=== PATIENT | female | born 1990 | race Caucasian/White ===

== ENCOUNTER 2021-02-03 04:37 | Emergency (ER) | payer OTHER ==
[2021-02-03 05:44] LABS: HEMOGLOBIN 11.8 gm/dl (12.3-15.3); RED BLOOD COUNT 4.13 M/UL (4.00-5.10); WHITE BLOOD COUNT 13.7 K/UL (4.5-11.0)
[2021-02-03 06:03] LABS: BUN/CREATININE RATIO 13 (0-10)
== END 2021-02-03 08:50 | disposition home or self-care (01) ==
LOC: ER1 04:37
PROVIDERS: Physician Assistant
DX: I47.1 Supraventricular tachycardia (principal); R10.30 Lower abdominal pain, unspecified; F17.200 Nicotine dependence, unspecified, uncomplicated; Z20.822 Contact with and (suspected) exposure to COVID-19
CPT/HCPCS: 80053; 81001; 82550; 82553; 83690; 83735; 83874; 84439; 84443; 84484; 84703; 85025; 87077; 87086; 87186; 93005; 93242; 99284; J0153; J1885; J2405; U0002

== ENCOUNTER → 2021-03-28 | Outpatient (CLI) | payer OTHER | LOC: HEART 5 09:52 | DX: I47.1 Supraventricular tachycardia (principal); I34.0 Nonrheumatic mitral (valve) insufficiency | CPT/HCPCS: 71046; 93306 ==

== ENCOUNTER 2021-11-09 12:27 | Outpatient (CLI) | payer OTHER ==
[~2021-11-09 12:27] MED LIST: BUSPAR 10MG10 MG PO; METOPROLOL SUCC25 MG PO; METOPROLOL TART25 MG PO; MINIPRES CAP 2 M2 MG PO; PRAZOSIN HCL2 MG PO
== END 2021-11-09 14:16 | disposition home or self-care (01) ==
LOC: GENOP 12:27
DX: O36.8130 Decreased fetal movements, third trimester, not applicable or unspecified (principal); O99.891 Other specified diseases and conditions complicating pregnancy; M54.9 Dorsalgia, unspecified; Z3A.33 33 weeks gestation of pregnancy
CPT/HCPCS: 59025; 81001

== ENCOUNTER → 2021-12-03 | Outpatient (CLI) | payer BC, OTHER ==
[~2021-12-03] MED LIST changes: +COLACE 100MG C100 MG PO; +CYCLOBENZAPRINE5 MG PO; +FAMOTIDINE40 MG PO; +FLINTSTONES1 EAC1 PO; +HEMOCYTE324 MG PO; +HYDROCODON-ACE1 EAC2 PO; +IBUPROFEN800 MG PO; +PROMETHAZINE12.5 M1 PO
[2021-12-03 11:13] LABS: HEMOGLOBIN 8.3 gm/dl (12.3-15.3); RED BLOOD COUNT 3.48 M/UL (4.00-5.10); WHITE BLOOD COUNT 13.5 K/UL (4.5-11.0)
== END ==
LOC: GENOP 10:36
PROVIDERS: Obstetrics & Gynecology
DX: Z53.9 Procedure and treatment not carried out, unspecified reason (principal)
CPT/HCPCS: 36415; 81001; 85025

== ENCOUNTER 2021-12-04 05:15 | Inpatient (IN) | payer BC ==
[~2021-12-04] VITALS: Ht 167.6 cm; Wt 113.9 kg
[~2021-12-04 05:15] MED LIST changes: -COLACE 100MG C100 MG PO; -CYCLOBENZAPRINE5 MG PO; -FAMOTIDINE40 MG PO; -FLINTSTONES1 EAC1 PO; -HEMOCYTE324 MG PO; -HYDROCODON-ACE1 EAC2 PO; -IBUPROFEN800 MG PO; -PROMETHAZINE12.5 M1 PO
[2021-12-04] MEDS ORDERED: FAMOTIDINE40 MG PO (07:00)
[2021-12-04] MEDS ORDERED: PROMETHAZINE12.5 M1 PO (07:01)
[2021-12-04] MEDS ORDERED: FLINTSTONES1 EAC1 PO (07:04)
[2021-12-04] MEDS ORDERED: CYCLOBENZAPRINE5 MG PO (07:04)
[2021-12-04] MEDS ORDERED: HEMOCYTE324 MG PO (13:22)
[2021-12-04] MEDS ORDERED: HYDROCODON-ACE1 EAC2 PO (13:22)
[2021-12-04] MEDS ORDERED: COLACE 100MG C100 MG PO (13:22)
[2021-12-04] MEDS ORDERED: IBUPROFEN800 MG PO (13:22)
[2021-12-05 03:48] LABS: HEMOGLOBIN 7.5 gm/dl (12.3-15.3)
== END 2021-12-05 18:23 | disposition home or self-care (01) | DRG 787 ==
LOC: OB 05:15
PROVIDERS: ADMIT Obstetrics & Gynecology
PROC: 3E0234Z Introduction of Serum, Toxoid and Vaccine into Muscle, Percutaneous Approach (ICD-10-PCS; 2021-12-04)
PROC: 10D00Z1 Extraction of Products of Conception, Low, Open Approach (ICD-10-PCS; principal; 2021-12-04 08:45)
DX: O13.4 Gestational [pregnancy-induced] hypertension without significant proteinuria, complicating childbirth (principal); O98.42 Viral hepatitis complicating childbirth; O99.214 Obesity complicating childbirth; E66.01 Morbid (severe) obesity due to excess calories; O99.02 Anemia complicating childbirth; B18.2 Chronic viral hepatitis C; F41.9 Anxiety disorder, unspecified; O99.344 Other mental disorders complicating childbirth; Z28.310 Unvaccinated for COVID-19; D50.9 Iron deficiency anemia, unspecified; O99.334 Smoking (tobacco) complicating childbirth; Z37.0 Single live birth; Z3A.37 37 weeks gestation of pregnancy; Z90.49 Acquired absence of other specified parts of digestive tract; Z90.89 Acquired absence of other organs; Z98.890 Other specified postprocedural states; Z23 Encounter for immunization
CPT/HCPCS: 36415; 82800; 85014; 85018; 86850; 86900; 86901; 90715; C9113; J0690; J1170; J2405; J2590; Q0177